=== PATIENT | female | born 1945 | race Caucasian/White ===

== ENCOUNTER 2024-03-27 18:29 | Emergency (ER) | payer MEDICARE, OTHER, SELFPAY ==
[2024-03-27 18:34] VITALS: BP 169/99
[2024-03-27 18:44] LABS: % Basophils 0.4 % (0-2); % Eosinophils 0.9 % (0-6); % Immature Granulocytes 0.4 % (0-0.5); % Lymphocytes 18.5 % (20.5-51.1); % Monocytes 8.6 % (1.7-9.3); % Neutrophils 71.2 % (42.2-75.2); Absolute Basophils 0.1 10^3/uL (0-0.2); Absolute Eosinophils 0.1 10^3/uL (0-0.7); Absolute Immature Granulocytes 0.1 10^3/uL (0-0.05); Absolute Lymphocytes 2.2 10^3/uL (1.2-3.4); Absolute Neutrophils 8.3 10^3/uL (1.4-6.5); Hematocrit 39.7 % (37.0-47.0); Hemoglobin 13.7 g/dL (12.0-16.0); Mean Corp Hgb Conc. 34.5 g/dL (33.0-37.0); Mean Corpuscular Hgb 27.6 pg (27.0-31.0); Mean Corpuscular Volume 79.9 fL (81.0-99.0); Mean Platelet Volume 10.4 fL (7.4-10.4); Nucleated Red Blood Cells % 0 %; Platelet Count 274 10^3/uL (130-400); Red Blood Cell Count 4.97 10^6/uL (4.20-5.40); Red Cell Dist. Width 13.9 % (11.5-14.5); White Blood Cell Count 11.6 10^3/uL (4.8-10.8)
[2024-03-27 19:09] LABS: ALT (SGPT) 29 U/L (0-35); AST (SGOT) 29 U/L (14-36); Albumin 4.8 g/dl (3.5-5.0); Alkaline Phosphatase 84 U/L (38-126); Blood Urea Nitrogen 17 mg/dl (7-17); Calcium 10.9 mg/dl (8.4-10.2); Carbon Dioxide 29 mmol/L (22-30); Chloride 99 mmol/L (98-107); Glucose 105 mg/dl (70-99); Lipase 63 U/L (23-300); Potassium 3.8 mmol/L (3.5-5.1); Sodium 137 mmol/L (135-145); Total Bilirubin 0.5 mg/dl (0.2-1.3); eGFR > 60.00
[2024-03-27 21:05] VITALS: BP 156/79
[2024-03-27 22:00] VITALS: BP 163/75
[2024-03-27] MEDS: ZOFRAN 4 MG IV (23:20)
[2024-03-27] MEDS: DUONEB 3 ML INH (23:24)
[2024-03-27] MEDS: PEPCID 20 MG IV (23:26)
[2024-03-27 23:33] VITALS: BP 112/73
[2024-03-27 23:48] LABS: Troponin I < 0.012 ng/ml
--- NOTE | 2024-03-28 01:32 | ED.GENMED ---
History of Present Illness
General
Chief Complaint: Abdominal Pain
Source: patient
Exam Limitations: none
Time Seen by Provider: 03/27/24 22:11
Nursing documentation reviewed up to this point in time: agreed with
History of Present Illness
History of Present Illness:
78-year-old female with past medical history of stroke hypertension hyperlipidemia CAD presenting to the emergency department today with concerns of upper abdominal discomfort over the past 3 days also had upper respiratory syndrome 2 weeks ago as
well. Nasal congestion sore throat. Patient has had ongoing cough. Patient mainly concerned of upper abdominal discomfort described as burning made worse after meals has responded somewhat to Tums.
Past History
Past History
ED Past Medical History: Asthma, HTN and Other (Skin cancer with removal)
ED Past Surgical History: (x 3)
Social History
Tobacco: Non-smoker
Alcohol: None
Drug: None
Personal:
Living: with family
Employment: Retired
Review of Systems
Review of Systems
Allergies reviewed?: Yes
All Other Systems: ROS reviewed and negative except as documented in HPI and ROS
Phy Exam
Physical Exam
Physical Exam:
GENERAL: Alert , in no apparent distress
EYE: pupils equal and reactive
NECK: Supple, no significant adenopathy.
ENT: o/p clr, mmm.
CARDIAC: Regular rate and rhythm .
LUNGS: Clear breath sounds bilaterally, no acute respiratory distress, no wheezes/rales/rhonchi
ABDOMEN: Soft, without focal tenderness, no r/g, no cvat
NEUROLOGICAL: Alert and oriented, no focal neuro deficits
SKIN: Warm and dry, skin intact.
MUSCULOSKELETAL: No edema, well perfused.
PSYCH: Normal and appropriate interaction.
Course
Orders/Labs/Results
Orders:
Orders
03/27/24 18:36
ECG [Electrocardiogram (*1)] Urgent
Reason for Study: Abdominal Pain
03/27/24 18:37
EKG- Treatment ONCE
03/27/24 18:39
Complete Blood Count/With Diff Urgent
Comprehensive Metabolic Panel Urgent
Lipase Urgent
03/27/24 22:44
Famotidine [Pepcid] 20 mg IV NOW STA
Ipratropium/Albuterol Sulfate [Duoneb] 3 ml INH R NOW ONE
Ondansetron Injectable [Zofran] 4 mg IV NOW STA
03/27/24 22:45
CT Abd/Pel (IV only)-DH only Urgent
Comment:
Reason For Exam: abd pain diffuse
03/27/24 23:14
Troponin I Urgent
03/28/24 00:00
CR Chest - 2 Views Urgent
Reason For Exam: cough multiple weeks
Abnormal Lab Results
03/27/24
18:39
WBC 11.6 H 10^3/uL
(4.8-10.8)
MCV 79.9 L fL
(81.0-99.0)
Abs Immat Gran (auto) 0.1 H 10^3/uL
(0-0.05)
Absolute Neuts (auto) 8.3 H 10^3/uL
(1.4-6.5)
Absolute Monos (auto) 1.0 H 10^3/uL
(0.1-0.6)
Lymphocytes % 18.5 L %
(20.5-51.1)
Glucose 105 H mg/dl
(70-99)
Calcium 10.9 H mg/dl
(8.4-10.2)
03/27/24 18:39
03/27/24 18:39
Vital Signs
Initial and Last Documented VS:
Initial Vital Signs
Temp Pulse Resp BP Pulse Ox
97.8 F 84 18 169/99 98
03/27/24 18:34 03/27/24 18:34 03/27/24 18:34 03/27/24 18:34 03/27/24 18:34
Last Documented Vital Signs
Temp Pulse Resp BP Pulse Ox
97.8 F 80 24 112/73 95
03/27/24 18:34 03/28/24 01:30 03/28/24 01:30 03/27/24 23:33 03/27/24 23:45
MDM/Problems Addressed
MDM/Problems Addressed:
78-year-old female presenting to the emergency department today with concerns of upper abdominal discomfort described as burning intermittently made worse after meals also had some ongoing cough. Had an upper respiratory infection 2 weeks ago
overall is felt better has had these ongoing symptoms. On arrival here blood pressure elevated but improving without specific treatment. Otherwise vital signs are normal. Slight white count of 11.6 otherwise labs unremarkable troponin negative
EKG nonischemic. Chest x-ray without signs of pneumonia CT scan of the abdomen showing a large mass in the pelvic region that she claims that she has been aware of her many decades and follows up closely as an outpatient for. Otherwise no emergent
findings. Patient did have a very slight and expiratory wheeze on exam she claims that her breathing has improving more recently but concerning this started on Symbicort as did not add medications irritate her stomach that already seems to be
potentially inflamed. She was started on famotidine also given Zofran to help with her nausea. Otherwise stable for discharge return precautions given.
*Critical Care Note
Total Time (30-74mins, 75-104mins- exclusive of procedures): Not Applicable
ED Attending Note
-
Portions of this chart may have been created with voice recognition software.� Occasional wrong word or��sound alike� substitutions may have occurred due to the inherent limitations of voice recognition software.
Discharge Plan
Departure
Patient Disposition: Home (Routine Discharge)
Date of Disposition: 03/28/24
Time of Disposition: 01:32
Patient with high blood pressure during this ER visit?: No
Condition: Good
Covid-19: Not Applicable
Discharge Problem:
Acute upper abdominal pain, Wheeze
Instructions: Wheezing, Abdominal Pain
Prescriptions:
New
ondansetron 4 mg tablet,disintegrating
4 mg PO Q8H PRN (Reason: nausea and vomiting) Qty: 10 0RF
famotidine 20 mg tablet
20 mg PO BID Qty: 14 0RF
budesonide-formoterol 80-4.5 mcg/actuation HFA aerosol inhaler
2 puff inhalation Q12H Qty: 10.2 0RF
No Action
lisinopril 40 MG tablet
40 mg PO DAILY
cyclosporine [Restasis] 10 DROPS dropperette
1 drp BOTH EYES DAILY
aspirin 81 MG tablet,chewable
81 mg PO DAILY
diclofenac sodium 100 mg tablet extended release 24 hr
100 mg PO DAILY
therapeutic multivitamin Tablet
1 tab PO DAILY
ascorbic acid (vitamin C) [Vitamin C] 500 mg Tablet
500 mg PO DAILY
hydrochlorothiazide 25 mg Tablet
25 mg PO DAILY
cholecalciferol (vitamin D3) [Vitamin D3] 125 mcg (5,000 unit) Tablet
125 mcg PO DAILY
clopidogrel [clopidogrel] 75 mg tablet
75 mg PO DAILY Qty: 90 3RF
nitroglycerin [nitroglycerin] 0.4 mg tablet, sublingual
0.4 mg sublingual [id number] PRN (Reason: chest pain) Qty: 25 2RF
atorvastatin [atorvastatin] 40 mg tablet
80 mg PO HS
Referrals:
Yesika Hopkins, DO [Family Provider] -
Activity Restrictions/Additional Instructions:
You came to the emergency department today with concerns of upper abdominal pain. Here you had a reassuring assessment and a CT scan that did not show emergent findings but did show the chronic mass to the pelvic area. You had a reassuring
cardiovascular assessment and a normal chest x-ray as well. Please take the Zofran to help with nausea and famotidine to help with stomach acid. Additionally can take the Symbicort to help with wheezing. Please follow closely with the primary
care doctor within 1 to 2 weeks for reassessment to ensure this is improving properly. Return to the emergency department for any worsening, new or concerning symptoms.
Interventions
Interventions:
*Risk Screen - Suicide Last Done: 03/27/24 20:41
*General Assessment Last Done: 03/27/24 20:41
*Neglect/Abuse Screening Last Done: 03/27/24 20:41
ED- Fall Risk Assessment Last Done: 03/27/24 20:41
*ED COVID-19 Vaccine History Last Done: 03/27/24 20:41
*Nursing Disposition Last Done: 03/28/24 01:49
KB-Yyfovq-Eyecsykugb Assessment Last Done: 03/27/24 20:41
Discharge Date and Time
Discharge Date/Time: 03/28/24 01:55
Print Language: INDONESIAN
[2024-03-28 01:40] VITALS: BMI 42.8
== END 2024-03-28 01:55 | disposition home or self-care (01) ==
LOC: EMR 18:29
PROVIDERS: Physician Assistant; EMERGENCY PHYSICIAN Student in an Organized Health Care Education/Training Program; FAMILY PHYSICIAN Internal Medicine
DX: R10.10 Upper abdominal pain, unspecified (principal); R06.2 Wheezing; I10 Essential (primary) hypertension; E78.00 Pure hypercholesterolemia, unspecified; I25.10 Atherosclerotic heart disease of native coronary artery without angina pectoris; J45.909 Unspecified asthma, uncomplicated
CPT/HCPCS: 99284; 94640; 96374; 96375; 71046; 74177; 80053; 83690; 84484; 85025; 93005; Q9967

== ENCOUNTER → 2024-11-14 09:00 | Outpatient (REF) | payer MEDICARE, OTHER, SELFPAY ==
[2024-11-14 17:21] LABS: ALT (SGPT) 32 U/L (0-35); AST (SGOT) 27 U/L (14-36); Albumin 4.8 g/dl (3.5-5.0); Alkaline Phosphatase 75 U/L (38-126); Blood Urea Nitrogen 22 mg/dl (7-17); Calcium 10.4 mg/dl (8.4-10.2); Carbon Dioxide 26 mmol/L (22-30); Chloride 101 mmol/L (98-107); Glucose 102 mg/dl (70-99); HDL Cholesterol 56 mg/dl; LDL Cholesterol, Calculated 61 mg/dl; Potassium 4.2 mmol/L (3.5-5.1); Sodium 138 mmol/L (135-145); Total Bilirubin 0.8 mg/dl (0.2-1.3); Total Cholesterol 142 mg/dl (50-199); Total Protein 6.8 g/dl (6.3-8.2); Triglyceride 129 mg/dl (10-149); Very Low Density Lipoprotein 25 mg/dl (0-30); eGFR > 60.00
== END ==
LOC: REG 09:00
PROVIDERS: ATTENDING PHYSICIAN Internal Medicine; FAMILY PHYSICIAN Internal Medicine
DX: I25.10 Atherosclerotic heart disease of native coronary artery without angina pectoris (principal); I10 Essential (primary) hypertension
CPT/HCPCS: 36415; 80053; 80061

== ENCOUNTER → 2025-02-21 10:27 | Outpatient (REF) | payer MEDICARE, OTHER, SELFPAY ==
[2025-02-21 11:46] LABS: ALT (SGPT) 42 U/L (0-35); AST (SGOT) 35 U/L (14-36); HDL Cholesterol 69 mg/dl; LDL Cholesterol, Calculated 46 mg/dl; Total Cholesterol 143 mg/dl (50-199); Triglyceride 140 mg/dl (10-149); Very Low Density Lipoprotein 28 mg/dl (0-30)
== END ==
LOC: REG 10:27
PROVIDERS: ATTENDING PHYSICIAN Internal Medicine; FAMILY PHYSICIAN Internal Medicine
DX: I63.9 Cerebral infarction, unspecified (principal); I10 Essential (primary) hypertension
CPT/HCPCS: 36415; 80061; 84450; 84460

== ENCOUNTER → 2025-04-03 09:17 | Outpatient (REF) | payer MEDICARE, OTHER, SELFPAY ==
[2025-04-03 10:32] LABS: ALT (SGPT) 36 U/L (0-35); AST (SGOT) 30 U/L (14-36)
== END ==
LOC: REG 09:17
PROVIDERS: ATTENDING PHYSICIAN Internal Medicine; FAMILY PHYSICIAN Internal Medicine
DX: I25.10 Atherosclerotic heart disease of native coronary artery without angina pectoris (principal)
CPT/HCPCS: 36415; 84450; 84460

== ENCOUNTER 2025-07-18 16:37 | Emergency (ER) | payer MEDICARE, OTHER, SELFPAY ==
[2025-07-18 16:48] VITALS: BP 138/99
[2025-07-18 17:24] LABS: Hematocrit 38.5 % (37.0-47.0); Hemoglobin 12.4 g/dL (12.0-16.0); Mean Corp Hgb Conc. 32.2 g/dL (33.0-37.0); Mean Corpuscular Volume 86.1 fL (81.0-99.0); Nucleated Red Blood Cells % 0 %; Platelet Count 188 10^3/uL (130-400); Red Cell Dist. Width 14.6 % (11.5-14.5)
[2025-07-18 17:35] LABS: ALT (SGPT) 27 U/L (0-35); AST (SGOT) 28 U/L (14-36); Albumin 4.1 g/dl (3.5-5.0); Alkaline Phosphatase 63 U/L (38-126); Blood Urea Nitrogen 16 mg/dl (7-17); Calcium 10.0 mg/dl (8.4-10.2); Carbon Dioxide 27 mmol/L (22-30); Chloride 103 mmol/L (98-107); Glucose 90 mg/dl (70-99); Potassium 3.6 mmol/L (3.5-5.1); Sodium 137 mmol/L (135-145); Total Protein 6.1 g/dl (6.3-8.2); eGFR > 60.00
[2025-07-18 17:45] LABS: Troponin I < 0.012 ng/ml
[2025-07-18 19:04] VITALS: BP 153/84
[2025-07-18 19:08] VITALS: BMI 51.8
[2025-07-18 19:12] VITALS: BP 157/72
[2025-07-18 19:44] VITALS: BP 160/79
[2025-07-18] MEDS: LASIX 40 MG PO (19:57)
[2025-07-18 20:00] VITALS: BP 150/81
--- NOTE | 2025-07-19 17:09 | ED.GENMED ---
History of Present Illness
General
Chief Complaint: Swelling
Source: patient
Exam Limitations: none
Time Seen by Provider: 07/18/25 18:50
Nursing documentation reviewed up to this point in time: agreed with
History of Present Illness
History of Present Illness:
Patient to the emergency department with complaint of increasing bilateral lower extremity edema, dyspnea on exertion. She states that her swelling in her legs has increased over the past few weeks. She takes hydrochlorothiazide daily and has
increased the dose on her own to 25 mg twice daily. Without improvement. She spoke with her family doctor by phone and was advised to come to the emergency department. On arrival to the ED she is awake and alert in no visible distress. Pulse ox
is 98% on room air. To the ED accompanied by daughter for evaluation
Past History
Past History
ED Past Medical History: Asthma, HTN and Other (Skin cancer with removal)
ED Past Surgical History: (x 3)
Social History
Tobacco: Non-smoker
Alcohol: None
Drug: None
Personal:
Living: with family
Employment: Retired
Review of Systems
Review of Systems
Allergies reviewed?: Yes
All Other Systems: ROS reviewed and negative except as documented in HPI and ROS
Constitutional: Reports no symptoms
EENT: Reports no symptoms
Respiratory: Reports trouble breathing
Cardiac: Reports no symptoms
ABD/GI: Reports no symptoms
: Reports no symptoms
Musculoskeletal: Reports edema (+2 edema bilateral lower extremities)
Skin: Reports no symptoms
Neurological: Reports no symptoms
Phy Exam
General Physical Exam
General Presentation: well appearing and no apparent distress
General age: appears stated age
General Skin: warm and dry
General Habitus: normal
General Mental: alert
General Hydration: appears well hydrated
Cardiovascular Exam
Cardiovascular Exam: regular rate/rhythm
Pulmonary Exam
Pulmonary Exam: lungs clear, no respiratory distress, chest non tender, no crackles and no cough
Oxygen Status: room air (98%)
Gastrointestinal Exam
Gastrointestinal Exam: normal bowel sounds, non tender, soft, no organomegaly and non distended
Musculoskeletal Exam
Musculoskeletal Exam: full ROM and edema (+2 edema bilateral lower extremities)
Skin Exam
Skin Exam: normal color, warm/dry and no rash
Psychiatric Exam
Psychiatric Exam: normal mood/affect
Scores
Heart Failure Risk
Heart Failure Risk Score: Yes
History of Stroke or TIA: No
History of intubation for respiratory distress: No
Heart rate on ED arrival >/= 110: No
SaO2 <90% on arrival on room air: No
HR >/=110 during 3min walk test (or too ill to perform test): No
ECG has acute ischemic changes: No
Urea >/=12mmol/L (BUN 33.6mg/dL): No
Serum CO2>/=35mmol/L: No
Troponin I or T elevated to DC Level (0.4mg/dL): No
NT-proBNP >/=5,000ng/L (5,000pg/ml): No
HF Risk Score: 0
Admission Status: LOW RISK 2.8% Consider discharge to home with f/u visit to PCP/Proposal Lead Writer
Course
Orders/Labs/Results
Orders:
Orders
07/18/25 16:52
Electrocardiogram (*1) Urgent
Reason for Study: Shortness of Breath
EKG- Treatment ONCE
CR Chest - 2 Views Urgent
Comment:
Reason For Exam: SOB
07/18/25 17:09
Complete Blood Count/With Diff Urgent
Comprehensive Metabolic Panel Urgent
NT-proBNP Urgent
Troponin I Urgent
07/18/25 19:49
Furosemide [Lasix] 40 mg PO NOW STA
Abnormal Lab Results
07/18/25
17:09
MCHC 32.2 L g/dL
(33.0-37.0)
RDW 14.6 H %
(11.5-14.5)
MPV 12.0 H fL
(7.4-10.4)
Absolute Monos (auto) 0.9 H 10^3/uL
(0.1-0.6)
Total Protein 6.1 L g/dl
(6.3-8.2)
07/18/25 17:09
07/18/25 17:09
Vital Signs
Initial and Last Documented VS:
Initial Vital Signs
Temp Pulse Resp BP Pulse Ox
98.1 F 100 20 138/99 97
07/18/25 16:48 07/18/25 16:48 07/18/25 16:48 07/18/25 16:48 07/18/25 16:48
Last Documented Vital Signs
Temp Pulse Resp BP Pulse Ox
98.1 F 72 21 150/81 94
07/18/25 16:48 07/18/25 20:00 07/18/25 20:00 07/18/25 20:00 07/18/25 19:45
*Pulse Oximetry
SaO2: 94
Oxygen Mode of Delivery: Room air
Patient hypoxic: no
*Critical Care Note
Total Time (30-74mins, 75-104mins- exclusive of procedures): Not Applicable
Update Note
Update Note:
Patient to the emergency department with complaint of increasing bilateral leg lower extremity swelling and dyspnea on exertion. Symptoms have been ongoing for the past few weeks. She increased her hydrochlorothiazide from 25 mg daily to 25 mg
twice daily without improvement. She spoke with her family doctor today who attempted to get her into see her bonsai tender today but there were no appointments available so she was advised to come to the ED. On arrival to the emergency department
she is awake and alert in no distress. Vital signs are stable she remains afebrile. Pulse ox is 98% on room air lungs are clear to auscultation no crackles noted. She has no prior history of CHF. BNP is normal. chest x-ray NAD. Labs reviewed no
concerning findings. Case discussed with Dr. Cano. Will give one-time dose of Lasix 40 mg p.o. in ED and discharged home. She will follow-up with her bonsai tender Dr. Chapman tomorrow as scheduled. She was given instructions on signs and symptoms
to return to the emergency department and she is agreeable to plan. She is discharged home accompanied by her daughter.
ED Attending Note
-
Portions of this chart may have been created with voice recognition software.� Occasional wrong word or��sound alike� substitutions may have occurred due to the inherent limitations of voice recognition software.
Discharge Plan
Departure
Patient Disposition: Home (Routine Discharge)
Date of Disposition: 07/18/25
Time of Disposition: 19:51
Patient with high blood pressure during this ER visit?: No
Condition: Good
Covid-19: Not Applicable
Discharge Problem:
Edema leg
Instructions: Dependent Edema (DC)
Prescriptions:
No Action
lisinopril 40 MG tablet
40 mg PO DAILY
cyclosporine [Restasis] 10 DROPS dropperette
1 drp BOTH EYES DAILY
aspirin 81 MG tablet,chewable
81 mg PO DAILY
diclofenac sodium 100 mg tablet extended release 24 hr
100 mg PO DAILY
therapeutic multivitamin Tablet
1 tab PO DAILY
ascorbic acid (vitamin C) [Vitamin C] 500 mg Tablet
500 mg PO DAILY
hydrochlorothiazide 25 mg Tablet
25 mg PO DAILY
cholecalciferol (vitamin D3) [Vitamin D3] 125 mcg (5,000 unit) Tablet
125 mcg PO DAILY
clopidogrel [clopidogrel] 75 mg tablet
75 mg PO DAILY Qty: 90 3RF
nitroglycerin [nitroglycerin] 0.4 mg tablet, sublingual
0.4 mg sublingual [id number] PRN (Reason: chest pain) Qty: 25 2RF
atorvastatin [atorvastatin] 40 mg tablet
80 mg PO HS
ondansetron 4 mg tablet,disintegrating
4 mg PO Q8H PRN (Reason: nausea and vomiting) Qty: 10 0RF
famotidine 20 mg tablet
20 mg PO BID Qty: 14 0RF
budesonide-formoterol 80-4.5 mcg/actuation HFA aerosol inhaler
2 puff inhalation Q12H Qty: 10.2 0RF
Referrals:
UNKNOWN - PT DOES,NOT KNOW [Family Provider]
Activity Restrictions/Additional Instructions:
Follow-up with Dr. Chapman in the office tomorrow as scheduled. Return to the emergency room immediately for any difficulty breathing, chest pain/pressure, or for any further concerns.
Interventions
Interventions:
*Risk Screen - Suicide Last Done: 07/18/25 19:08
*General Assessment Last Done: 07/18/25 16:48
*ED- Fall Risk Assessment Last Done: 07/18/25 19:08
*ED COVID-19 Vaccine History Last Done: 07/18/25 19:07
*ED Influenza Vaccine History Last Done: 07/18/25 19:07
*Nursing Disposition Last Done: 07/18/25 20:04
ED- Cardiac Assessment Last Done: 07/18/25 19:06
ED- Pulmonary Assessment Last Done: 07/18/25 19:05
Discharge Date and Time
Discharge Date/Time: 07/18/25 20:04
Print Language: [place]
== END 2025-07-18 20:04 | disposition home or self-care (01) ==
LOC: EMR 16:37
PROVIDERS: EMERGENCY PHYSICIAN Student in an Organized Health Care Education/Training Program
DX: R60.0 Localized edema (principal); I10 Essential (primary) hypertension; J45.909 Unspecified asthma, uncomplicated; Z85.828 Personal history of other malignant neoplasm of skin
CPT/HCPCS: 99284; 71046; 80053; 83880; 84484; 85025; 93005